=== PATIENT | male | born 1980 | race African-American/Black ===

== ENCOUNTER 2022-11-12 12:41 | Emergency (ER) | payer MEDICAID, OTHER ==
[~2022-11-12] VITALS: Ht 185.4 cm; Wt 80.7 kg
[2022-11-12 12:47] VITALS: BP 147/97
--- NOTE | 2022-11-12 12:49 | NUR ---
AMBULATED TO BED 4
--- NOTE | 2022-11-12 12:56 | NUR ---
42/M C/O RIGHT LOWER BACK PAIN SINCE SATURDAY. STATES HE WAS WALKING DOWN THE STAIRS AT HOME AND SLIPPED ON THE LAST STEP, DENIES HEAD OR NECK INJURY, DENIES LOC. TOOK MOTRIN WITH NO RELIEF. PMH: DENIES NKDA
[2022-11-12] MEDS ORDERED: CYCLOBENZAPRINE 10 MG TAB PO ONE (13:00)
[2022-11-12] MEDS ORDERED: KETOROLAC 30 MG/ML VIAL IM ONE (13:00)
[2022-11-12] MEDS ORDERED: CYCL-711 PO (13:30)
[2022-11-12] MEDS ORDERED: IBUP-2213 PO (13:30)
[2022-11-12] MEDS ORDERED: LIDO1ADH38 TP (13:30)
[2022-11-12 13:40] VITALS: BP 138/89
--- NOTE | 2022-11-12 13:41 | NUR ---
Patient discharged with v/s stable. Written and verbal after care instructions given and explained. Patient alert, oriented and verbalized understanding of instructions. Ambulatory with steady gait. All questions addressed prior to discharge. ID band removed. Patient advised to follow up with PMD. Rx of FLEXERIL, IBUPROFEN, LIDOCAINE given. Patient educated on indication of medication including possible reaction and side effects. Opportunity to ask questions provided and answered.
== END 2022-11-12 13:40 | disposition home or self-care (01) ==
LOC: MED 12:41
DX: S39.012A Strain of muscle, fascia and tendon of lower back, initial encounter (principal); W18.30XA Fall on same level, unspecified, initial encounter; Y93.89 Activity, other specified; Y92.89 Other specified places as the place of occurrence of the external cause; Y99.8 Other external cause status
CPT/HCPCS: 96372; 99283; J1885